=== PATIENT | female | born 1990 | race Caucasian/White ===

== ENCOUNTER → 2016-05-30 | Outpatient (CLI) | payer OTHER ==
[~2016-05-30] MED LIST: ANUSOL-HC CREAM30 GM PR; COLACE 100MG C100 MG PO; IBUPROFEN600 MG PO; IRON325 M1 PO; MACROBID 100 M100 MG PO; PRENATAL TABLE1 EAC3 PO
== END ==
LOC: US 12:13
DX: N32.9 Bladder disorder, unspecified (principal)